=== PATIENT | male | born 1970 | race African-American/Black ===

== ENCOUNTER → 2019-10-28 | Outpatient (CLI) | payer OTHER ==
--- NOTE | 2019-10-28 14:37 | RAD ---
PROCEDURE: LUMBAR SPINE 2-3V, FOOT LEFT 2V CLINICAL INDICATION / HISTORY: Reason: Left foot PAIN. / Spl. Instructions: / History: . TECHNIQUE: AP, lateral and oblique views of the left foot. COMPARISON: None FINDINGS: Second digit MTP amputation is present. No fracture or dislocation is identified. The bone density is normal. The joint space widths are maintained, and there are no erosions to suggest an inflammatory arthropathy. No soft tissue abnormality is seen. IMPRESSION: No acute osseous abnormality. PROCEDURE: LUMBAR SPINE 2-3V CLINICAL INDICATION / HISTORY: Reason: BACK PAIN. / Spl. Instructions: / History: . TECHNIQUE: AP and lateral views of the lumbar spine were obtained COMPARISON: None FINDINGS: Five lumbar segments are identified. Lumbar vertebral bodies are normal in height and alignment. Disc height is maintained. Pedicles are intact. Soft tissues unremarkable. Visualized sacroiliac joints and hips reveal no significant abnormalities. IMPRESSION: Unremarkable L-spine 2 view series. Electronically signed by: Sandra Briseno MD (10/28/2019 2:34 PM) [id number]
== END | disposition home or self-care (01) ==
LOC: RAD 13:28
PROVIDERS: ATTEND Anesthesiology Pain Medicine
DX: M79.672 Pain in left foot (principal); M54.5 Low back pain; Z89.111 Acquired absence of right hand
CPT/HCPCS: 72100; 73620

== ENCOUNTER → 2020-01-26 | Outpatient (CLI) | payer OTHER ==
--- NOTE | 2020-01-26 15:44 | RAD ---
EXAM: Lumbar spine, 2 views. HISTORY: Pain. COMPARISON: None. FINDINGS: 2 views of the lumbar spine are obtained. There is degenerative endplate remodeling and disc space narrowing at L5-S1. There is sacralization of the left L5 transverse process resulting in articulation with the underlying sacrum. This is a normal variant. IMPRESSION: 1. Mild degenerative change at the lumbosacral junction. 2. Slight sacralization of the left L5 transverse process, a normal variant. Electronically signed by: Estrellita Fletcher MD (01/26/2020 3:41 PM) [facility]
--- NOTE | 2020-01-26 16:55 | RAD ---
Left foot x-rays 2 views HISTORY: Osteomyelitis left foot. FINDINGS: Amputation of the second toe. No fracture or dislocation. No periostitis or bone demineralization or lytic bone destruction to localize a potential site of osteomyelitis. Very mild bone spurring of the first metatarsal head at the MTP joint. Arterial vascular calcifications are present. IMPRESSION: Second toe amputation. No acute osseous injury evident. Electronically signed by: Bradley Reddy MD (01/26/2020 4:52 PM) [facility]
== END ==
LOC: RAD 12:30
PROVIDERS: ATTEND Anesthesiology Pain Medicine
DX: M47.817 Spondylosis without myelopathy or radiculopathy, lumbosacral region (principal); M86.8X7 Other osteomyelitis, ankle and foot; M77.32 Calcaneal spur, left foot; Z89.422 Acquired absence of other left toe(s)
CPT/HCPCS: 72100; 73620